=== PATIENT | female | born 1960 | race African-American/Black ===

== ENCOUNTER 2017-09-19 14:20 | Emergency (ER) | payer OTHER ==
[~2017-09-19] VITALS: Ht 172.7 cm; Wt 113.4 kg
[~2017-09-19 14:20] MED LIST: ANTIVERT25 MG PO; HYDROCODONE-AP1 EAC6 PO; IBUPROFEN 600600 M1 PO; MEDROL DOSPAK21 TAB PO; MOBIC15 MG PO; NAPROSYN500 MG PO; NOHOMEMEDICATIONS; NORCO 5-325 TA1 EACH PO; VALIUM2 MG PO
[2017-09-19] MEDS ORDERED: TUSSIONEX PENN115 ML PO (14:56)
[2017-09-19] MEDS ORDERED: PREDNISONE50 MG PO (14:56)
[2017-09-19] MEDS ORDERED: PROAIR HFA8.5 GM INH (14:58)
[2017-09-19] MEDS ORDERED: NORCO 5-325 TA1 EACH PO (15:36)
== END 2017-09-19 15:47 | disposition home or self-care (01) ==
LOC: ER 14:20
DX: R06.00 Dyspnea, unspecified (principal); J06.9 Acute upper respiratory infection, unspecified; K21.9 Gastro-esophageal reflux disease without esophagitis; Z88.0 Allergy status to penicillin; Z90.710 Acquired absence of both cervix and uterus

== ENCOUNTER → 2019-11-07 | Outpatient (CLI) | payer BC ==
[~2019-11-07] VITALS: Ht 172.7 cm; Wt 130.6 kg
[~2019-11-07] MED LIST changes: +NEURONTIN300 MG PO; +PREDNISONE50 MG PO; +PROAIR HFA8.5 GM INH; +TRAMADOL 50 MG50 MG PO; +TUSSIONEX PENN115 ML PO; +TYLENOL325 M1 PO
[2019-11-07 13:29] VITALS: BP 134/82
--- NOTE | 2019-11-07 13:32 | NUR ---
Pain Clinic Assessment: 1. History of Osteoarthritis: SPINE History of Rheumatoid Arthritis: DENIES 2. Height: 5 ft. 8 in. 172.7 cm. Weight: 288.0 lb. oz. 130.636 kg. Patient's BMI: 43.8 3. Vital Signs: BP: 134/82 Pulse: 88 Resp: 18 Temp: 02 Sat: ECG Mon: 4. Pain Intensity: 10 5. Fall Risk: Dizziness: N Needs help standing or walking: N Fallen in the last 3 months: N Fall risk comments: 6. Patient on Blood Thinner: None 7. History of Hypertension: N 8. Opioid Therapy greater than 6 weeks: N Opiate Contract Signed: 9. Risk Assessment Tool Provided: 10. Functional Assessment Tool: 11. Recreational Drug Use: Never Drug Type: Tobacco Use: Current Every Day Smoker Tobacco Type: Cigarettes Amount or Packs/day: 0.5 How Many Years: 2 Alcohol Use: No Frequency: Quant:
--- NOTE | 2019-11-14 08:39 | HPC ---
[address] [place] [address] PAIN MANAGEMENT CONSULTATION Name: KOJO DUMAS Room #: REG CAROLDelia Lynn.#: [id number] Admission: 11/07/19 Attend Phys: Alireza Alvaerz DO Discharge: Date of : 64 Report #: [id number] THIS REPORT FOR: //name// CC: Alireza Salomon DATE OF SERVICE: 11/07/2019 CHIEF COMPLAINT: Low back pain, right lower extremity pain with paresthesias. HISTORY OF PRESENT ILLNESS: As you know, the patient is a very pleasant, class 3 morbidly obese 59-year-old female, who has reported longstanding history of low back pain, right lower extremity pain with paresthesias. The patient states pain began on 08/15/2019. She denies injury or trauma that may have led to symptom occurrence. She has sought initially conservative treatment course, utilizing [id number] medications, rest and relaxation. She considered adjunctive treatment options such as chiropractic manipulation and massage therapy, but did not pursue. The patient discussed the case further with her PCP, who referred the patient to undergo imaging. Imaging was completed on 10/11/2019, which showed mild changes within the lumbar region, but no specific reason for her current symptoms. They continued conservative treatment options, but due to lack of improvement, the patient was then subsequently referred to our clinic to discuss potential treatment options. The patient indicates today pain is continuous, steady and constant, describes the pain as burning, shooting, cramping, aching, throbbing and stabbing. Places current pain score 10/10, daily average at 10/10, worst pain has been at 10/10. The patient says walking, standing exacerbates symptoms, nothing tends to improve pain. She has been referred to our service to discuss treatment options for suspected lumbar radiculopathy minus any notable changes in the MRI. PAST MEDICAL HISTORY: 1. Degenerative joint disease. 2. Osteoarthritis. 3. Class 3 morbid obesity. PAST SURGICAL HISTORY: 1. Hysterectomy. 2. Right ankle surgery. SOCIAL HISTORY: The patient smokes at least 2 cigarettes per day and has done so for over 2 years. Denies IV illicit drug use. Denies any chronic alcohol use. 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 She continues to work. She is not receiving workmen's compensation nor is she trying to obtain disability benefits in regards to her pain. She is not involved in litigation. She is [facility] [address] [place] [address] PAIN MANAGEMENT CONSULTATION Name: KOJO DUMAS Room #: REG CLI LeahCassie#: [id number] Admission: 11/07/19 Attend Phys: Alireza Alvarez DO Discharge: Date of : 64 Report #: [id number] unaccompanied today. REVIEW OF SYSTEMS: Positive for wearing corrective eyewear, varicose veins, numbness and tingling sensations involving the right lower extremity, chronic low back pain. Mild arthritic changes of the weightbearing joints. All other review of systems negative per 12-point review of systems other than those listed in history of present illness. Pain impact score 70/70 indicating complete interference of daily activities secondary to pain. ALLERGIES: PENICILLIN. CURRENT MEDICATIONS: Acetaminophen 325 mg t.i.d. p.r.n., tramadol 50 mg q.i.d. p.r.n. pain. IMAGING: MRI lumbar spine obtained on 10/19/2019 shows L1-L2 unremarkable. L2-L3 shows only mild bilateral facet arthropathy, ligamentum flavum hypertrophy, no central canal neural foraminal stenosis. L3-L4, no disk bulge, mild bilateral facet arthropathy and ligamentum flavum hypertrophy, no central canal neural foraminal stenosis. L4-L5, no disk bulge, [id number] bilateral facet arthropathy, mild ligamentum flavum hypertrophy, no central canal or neural foraminal stenosis. L5-S1, no disk bulge, mild bilateral facet arthropathy, no central canal neural foraminal stenosis. PHYSICAL EXAMINATION: VITAL SIGNS: Blood pressure 134/82, pulse 88, respiratory rate 18 and unlabored. The patient is 100% on room air. Height 5 feet 8 inches tall, weight 288 pounds, BMI calculated 43.8. GENERAL: Well-developed, well-nourished, well-hydrated, class 3 morbidly obese 59-year-old female, appears stated age, no acute distress, awake, alert and oriented x 3. Current pain score rated at 10/10. HEENT: Normocephalic, atraumatic. Pupils equal, round, reactive to light. Extraocular muscles are intact. Speech fluent. The patient deemed a fair historian. LUNGS: Clear. No wheeze, rhonchi or rales. CARDIOVASCULAR: Regular. No appreciable gallop, no rub. ABDOMEN: Soft, obese with active bowel sounds. EXTREMITIES: Show no clubbing, no cyanosis, no edema. MUSCULOSKELETAL: Lower extremity strength appears equal and symmetrical 5/5, intact to light touch from L1 through S2 dermatomes. Seated straight leg raising negative. Supine straight leg raising negative. Lucas's test is negative. Modified Gaenslen's positive for axial low back pain. Ankle clonus negative. Babinski is negative. The patient reports decreased tactile sensation along dermatomal distribution of 3 and 4 on the right, negative on the left. There is no muscle bulk changes or tone changes. No atrophy of the [facility] [address] [place] [address] PAIN MANAGEMENT CONSULTATION Name: KOJO DUMAS Room #: REG CAROLDelia Styles#: [id number] Admission: 11/07/19 Attend Phys: Alireza Alvarez DO Discharge: Date of : 64 Report #: [id number] musculature. Stance is hyperlordotic. There is some palpatory tenderness over the paraspinal musculature. ASSESSMENT: 1. Possible lumbar radiculopathy. 2. Lumbosacral spondylosis with a reported radicular component. 3. Facet arthropathy of the lumbar spine. 4. Morbid obesity. PLAN: 1. The patient and I discussed today the findings of her MRI. I am pleased to advise the patient that she only shows changes at the L4-L5 level, typical for a 59-year-old female. I do believe the facet arthropathy at the L4-L5 level is contributed to by her excessive weight. We discussed the fact that there are no lateralizing features in the neural foramen or at the central canal that would be responsible for the right lower extremity numbness and tingling, though it does appear by distribution, she is experiencing some radicular symptoms. We discussed the treatment options for lumbar radicular symptoms without specific notable lumbar pathology. Following was discussed with the patient today. We discussed physical therapy, stretching exercise, core strengthening and a concerted effort at weight loss, which will be a necessary component for treatment. We discussed medication management utilizing neuropathic pain medications for the numbness and tingling sensation she is experiencing. We discussed injection therapy to address suspected lumbar radiculopathy utilizing a lumbar epidural injection at the L4-L5 level to address the distribution of L3 and L4 on the right side. We discussed facet injections to address the facet arthropathy changes noted at the L4-L5 level. We also discussed medial branch nerve blocks and radiofrequency lesioning as a treatment course to address axial back pain, but this will not improve the radicular component of the patient's symptoms. We also discussed options from a more aggressive standpoint such as a spinal cord stimulator and ultimately surgical options, though the patient is not a candidate for either of these treatment options. After reviewing the risks and benefits of all the different treatment options available, the patient chose to begin with medication management. 2. The patient was provided a prescription of gabapentin to address radicular symptoms. She will start with 1 tab p.o. at bedtime for 3 nights, then increase to 2 tabs p.o. at bedtime for 3 nights, then 3 tabs p.o. at bedtime for 3 nights. If no improvement in symptoms, no side effects of sleepiness, disorientation, confusion, mental slowing, then begin escalating doses in the morning hours adding 1 tab every 3 days with a goal of 900 mg b.i.d. The patient was advised anytime during the titration, she notes improvement in symptoms of the right lower extremity, she is to stabilize at that dose without further escalation. No improvement in symptoms, no side effects, continue the titration as directed. 3. The patient and I did discuss the possibility of having her undergo EMG of the right lower extremity. There is a potential that the patient is [address] [address] PAIN MANAGEMENT CONSULTATION Name: JERMAIN DUMASLIZ Room #: REG KATHY Styles#: [id number] Admission: 11/07/19 Attend Phys: Alireza Alvarez DO Discharge: Date of : 64 Report #: [id number] experiencing more of a meralgia paresthetica type distribution of symptoms than a lumbar radicular standpoint. EMG would help determine if this is the case. If meralgia paresthetica is the source of the patient's paresthesias in the right lower extremity, treatment would be adjusted for medication management, also to discuss a significant weight loss program and utilizing looser clothing as this typically is the source in overweight females with meralgia paresthetica as there is compressive forces upon the nerve due to tight clothing. Distribution of pain the patient is experiencing could correlate to meralgia paresthetica, though she is experiencing some more anterior thigh discomfort, which does not fit conclusively, but does not rule out entirely. We will consider whether or not an EMG is necessary based on her response to treatment. 4. We will see the patient back in followup visit in approximately one month. At that time, review the efficacy of the medication provided as it will take time to escalate the dosing. She was advised if she has any questions or concerns, contact our clinic by phone. If she does have side effects to medication, reduce the doses prior to effects, continue those medications until her return visit. 5. We wish to thank Dr. Miki Salomon for the referral of the patient to our clinic. We will keep you apprised of response to treatment as we address her suspected lumbar radiculopathy and possible meralgia paresthetica. Again, we wish to thank you for the opportunity to see the patient in consultation. <ELECTRONICALLY SIGNED> By: Alireza Alvarez DO 11/14/19 [id number] Alireza Alvarez DO /nt
== END ==
LOC: PAIN 07:05
DX: M47.27 Other spondylosis with radiculopathy, lumbosacral region (principal); M12.88 Other specific arthropathies, not elsewhere classified, other specified site; E66.09 Other obesity due to excess calories; Z88.8 Allergy status to other drugs, medicaments and biological substances; Z79.899 Other long term (current) drug therapy

== ENCOUNTER 2019-12-29 08:41 | Emergency (ER) | payer BC ==
[~2019-12-29] VITALS: Ht 172.7 cm; Wt 127.0 kg
[2019-12-29] MEDS ORDERED: TESSALON PERLE100 MG PO (11:31)
[2019-12-29] MEDS ORDERED: VENTOLIN HFA 1818 GM INH (11:31)
[2019-12-29] MEDS ORDERED: ZPAK PO (11:31)
[2019-12-29 11:50] VITALS: BP 112/83
== END 2019-12-29 11:51 | disposition home or self-care (01) ==
LOC: ER 08:41
DX: J18.9 Pneumonia, unspecified organism (principal); R05 Cough; Z88.0 Allergy status to penicillin; Z90.710 Acquired absence of both cervix and uterus

== ENCOUNTER 2021-05-18 17:29 | Emergency (ER) | payer OTHER ==
[~2021-05-18] VITALS: Ht 170.2 cm; Wt 129.3 kg
[~2021-05-18 17:29] MED LIST changes: +TESSALON PERLE100 MG PO; +VENTOLIN HFA 1818 GM INH; +ZPAK PO
[2021-05-18 17:45] VITALS: BP 122/87
[2021-05-18] MEDS ORDERED: APAP W/CODEINE1 TA2 PO (18:29)
== END 2021-05-18 18:42 | disposition home or self-care (01) ==
LOC: ER 17:29
DX: S80.01XA Contusion of right knee, initial encounter (principal); Z90.710 Acquired absence of both cervix and uterus; Z88.0 Allergy status to penicillin; W00.0XXA Fall on same level due to ice and snow, initial encounter; Y93.89 Activity, other specified; Y92.89 Other specified places as the place of occurrence of the external cause; Y99.8 Other external cause status